=== PATIENT | female | born 1995 | race Caucasian/White ===

== ENCOUNTER 2017-03-31 06:03 | Emergency (ER) | payer OTHER ==
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
--- NOTE | 2017-03-31 07:24 | CR ---
Chest: Frontal view of the chest was obtained. Comparison: No prior chest x-ray. Heart size and mediastinum are normal. Lungs are clear. Bony structures are grossly intact. Impression: 1. Nothing acute is identified on two-view chest x-ray. Diagnostic code #1
[2017-03-31] MEDS ORDERED: Ibuprofen 400 MG Tab PO ONE (07:29)
== END 2017-03-31 09:00 | disposition home or self-care (01) ==
LOC: JD.ED 06:03
DX: S20.212A Contusion of left front wall of thorax, initial encounter (principal); V89.2XXA Person injured in unspecified motor-vehicle accident, traffic, initial encounter
CPT/HCPCS: 36415; 71010; 71010-26; 85025; 99284; 99284-25